=== PATIENT | female | born 1985 | race Caucasian/White ===

== ENCOUNTER 2018-09-17 22:00 | Inpatient (IN) | payer OTHER ==
[~2018-09-17 22:00] MED LIST: Bupivacaine 0.25% HCL 30 ML VIAL ONE
[2018-09-17] MEDS ORDERED: Promethazine HCl 25 MG/ML VIAL IM PRN (22:45)
[2018-09-17] MEDS ORDERED: NS / Oxytocin 40 units/1000ml 1,000 ML IV PRN (22:45)
[2018-09-17] MEDS ORDERED: Ibuprofen 800 MG TAB PO PRN (22:45)
[2018-09-17] MEDS ORDERED: Meperidine HCl/PF 25 MG/ML VIAL IM/IV PRN (22:45)
[2018-09-17] MEDS ORDERED: NS w/ Oxytocin 10 units 500 ML IV SCH ×2 (22:45)
[2018-09-17] MEDS ORDERED: Docusate 100 MG CAP PO PRN (22:45)
[2018-09-17] MEDS ORDERED: HYDROcodone/Acetaminophen 5/325 mg Tablet PO PRN ×2 (22:45)
[2018-09-17] MEDS ORDERED: Butorphanol Tartrate 1 MG/ML VIAL SLOW IVP PRN (22:45)
[2018-09-17] MEDS ORDERED: Ondansetron PF 4 MG/2 ML Vial IVP PRN (22:45)
[2018-09-17] MEDS ORDERED: Lidocaine 1% (PF) 30 ML VIAL SC PRN (22:45)
[2018-09-17] MEDS: Lactated Ringer's 1,000 ML IV SCH (22:57)
[2018-09-17 23:15] LABS: Hemoglobin 12.5 g/dL (12.0-16.0); Mean Corpuscular HGB CONC 34.6 g/dL (32.0-36.0); Mean Corpuscular Hemoglobin 31.7 pg (27.0-31.0); Mean Corpuscular Volume 91.6 fL (78.0-98.0); Mean Platelet Volume 6.8 fL (7.4-10.4); Platelet Count 225 thou/uL (130-400); RBC Distribution Width 11.1 % (11.5-14.5); Red Blood Cell (RBC) Count 3.94 mill/uL (4.20-5.40); White Blood Cell (WBC) Count 9.1 thou/uL (4.8-10.8)
--- NOTE | 2018-09-17 23:31 | PDOC.EVN ---
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 AROM performed after informed consent and AROM reviewed with her. CX 2cm pre-AROM/-, posterior.... AFTER arom, Ceph/Clear fluid. IUPC placed after reviewing it with her. FHTs reactive.
[2018-09-17 23:51] LABS: HBSAg Index 0.19 S/CO (0-0.99); Hep B Surf Ag Non-Reactive S/CO (NonReactive)
[2018-09-18 00:02] VITALS: BMI 25.0
[2018-09-18] MEDS ORDERED: Fentanyl 4 mcg/Bup 0.1% Cadd 0 ML ONE (00:28)
[2018-09-18] MEDS ORDERED: Fentanyl 4 mcg/Bup 0.1% Cadd 100 ML ONE ×2 (00:30→06:33)
[2018-09-18] MEDS: Lactated Ringer's 1,000 ML IV SCH ×2 (01:00→04:08)
[2018-09-18] MEDS ORDERED: diphenhydrAMINE 50 MG/ML VIAL IVP PRN (01:05)
[2018-09-18] MEDS ORDERED: Hydrocerin (Eucerin) Cream 120 gm Jar TOP PRN (01:05)
[2018-09-18] MEDS ORDERED: Promethazine HCl 25 MG/ML VIAL IM PRN (01:05)
[2018-09-18] MEDS ORDERED: Lactated Ringer's 500 ML IV PRN (01:05)
[2018-09-18] MEDS ORDERED: ePHEDrine/0.9% NaCl/PF SYRINGE 50 mg/10 ml SLOW IVP PRN (01:05)
[2018-09-18] MEDS ORDERED: Naloxone HCl 0.4 mg/ml Vial IVP PRN ×2 (01:05)
[2018-09-18] MEDS ORDERED: Acetaminophen 325 MG TAB PO PRN (01:05)
[2018-09-18] MEDS ORDERED: Ondansetron PF 4 MG/2 ML Vial IVP PRN ×2 (01:05→10:45)
[2018-09-18] MEDS ORDERED: Communication Order-Pharmacy FS SCH (01:15)
[2018-09-18] MEDS: Fentanyl 4 mcg/Bupivacaine 0.1% Cassette 100 ML EPIDURAL SCH ×2 (01:23→06:38)
--- NOTE | 2018-09-18 08:33 | PDOC.LDHP ---
Labor and Delivery H&P HPI: Pt is here for IOL for desires GUSTAVO @ 41 weeks with favorable cervix. Hx of CS for malpresentation, aware of risk and benefits of CS vs GUSTAVO. Current gestational age (weeks): 41 Due date: 09/11/18 Dating criteria: first trimester ultrasound Grav: 2 Para: 1 OB History Details: CS for malpresentation Current complications: none Abnormal US findings: No Past Medical History: none Current medications: pre- vitamins Previous surgical history: low tranverse CS, other (LEEP) Allergies/Adverse Reactions: Allergies Allergy/AdvReac Type Severity Reaction Status Date / Time No Known Allergies Allergy Verified 09/17/18 23:52 Social history: none - Physical Exam Vital signs reviewed and normal: yes General: NAD Heart: RRR Lungs: CTAB Abdomen: gravid Extremeties: no edema FHT: category 1 - Vaginal Exam cm dilated: 3 (on admission) Effacement: 50% Station: -1 - OB Labs Blood type: B RH: negative Antibody Screen: negative HIV: negative RPR: negative HEPSAg: negative 1 hour GCT: positive 3 hour GTT: negative GBS: negative Rubella: immune - Assessment L&D Assessment: medically indicated induction - Plan Plan: admit to L&D, GBS antibiotic prophylaxis, informed consent obtained, anesthesia consult for pain management -: A/P: 33yo @ 41 week here for IOL. AROM on admission and has progressed overnight to 10/100/+2, will start pushing, FHT reassuring.
[2018-09-18] MEDS ORDERED: Benzocaine/Menthol 20-0.5% 60 ML CAN TOP PRN (10:45)
[2018-09-18] MEDS ORDERED: Milk Of Magnesia 30 ML UDCUP PO PRN (10:45)
[2018-09-18] MEDS ORDERED: Adacel (T-DAP) 0.5 ML VIAL IM ONE (10:45)
[2018-09-18] MEDS ORDERED: NS / Oxytocin 40 units/1000ml 1,000 ML IV SCH (10:45)
[2018-09-18] MEDS ORDERED: Lanolin Ointment 7 GM TUBE TOP PRN (10:45)
[2018-09-18] MEDS ORDERED: HYDROcodone/Acetaminophen 5/325 mg Tablet PO PRN ×2 (10:45)
[2018-09-18] MEDS ORDERED: Bisacodyl 10 MG SUPP PR PRN (10:45)
[2018-09-18] MEDS: Ibuprofen 800 MG TAB PO SCH ×2 (13:53→21:17)
[2018-09-18] MEDS: Prenatal Vitamin 1 TAB PO SCH (15:12)
[2018-09-18] MEDS: Docusate Calcium (SURFAK) 240 MG CAP PO SCH ×2 (15:12→21:17)
[2018-09-18] MEDS: Ferrous Sulfate 325 MG TAB PO SCH (15:13)
[2018-09-19] MEDS: Ibuprofen 800 MG TAB PO SCH ×3 (06:15→21:48)
--- NOTE | 2018-09-19 08:02 | PDOC.PP ---
Post Progress Note Post Day #: 1 Subjective: breast feeding well, min lochia PO intake tolerated: yes Flatus: yes Ambulation: yes Vital Signs (12 hours) Temp Pulse Resp BP Pulse Ox 09/19/18 07:55 97.8 F 68 20 104/57 L 98 09/19/18 03:55 98.1 F 61 18 99/55 L 09/18/18 23:30 98.0 F 70 18 120/56 L 09/18/18 21:15 97 09/18/18 20:17 98.0 F 75 20 101/58 L 97 Weight Weight 160 lb - Physical Examination General: NAD Respiratory: non-labored breathing Skin: no rash Neurological: no gross focal deficits Psychiatric: normal affect Result Diagrams: 09/17/18 23:03 Additional Labs: Post Labs Blood Type B NEGATIVE 09/17/18 23:03 Hep Bs Antigen Non-Reactive S/CO (NonReactive) 09/17/18 23:03 (1) 41 weeks gestation of Code(s): Z3A.41 - 41 WEEKS GESTATION OF Status: Acute (2) Vaginal after delivery Code(s): O34.219 - MATERNAL CARE FOR UNSP TYPE SCAR FROM PREVIOUS DEL Status: Acute - Assessment/Plan PPD1 sp IOL and @ 41 weeks. Doing well, possible DC today if baby DC.
[2018-09-19] MEDS: Ferrous Sulfate 325 MG TAB PO SCH ×2 (08:03→16:26)
[2018-09-19] MEDS: Docusate Calcium (SURFAK) 240 MG CAP PO SCH ×2 (08:49→21:48)
[2018-09-19] MEDS: Prenatal Vitamin 1 TAB PO SCH (08:49)
[2018-09-19] MEDS ORDERED: Sodium Chloride 0.9% 0 ML ONE (21:49)
[2018-09-20] MEDS: Ibuprofen 800 MG TAB PO SCH ×2 (06:09→13:56)
[2018-09-20] MEDS: Ferrous Sulfate 325 MG TAB PO SCH ×2 (07:30→16:09)
[2018-09-20 08:00] VITALS: BP 113/66; TEMP 97.7
[2018-09-20] MEDS: Docusate Calcium (SURFAK) 240 MG CAP PO SCH (09:32)
[2018-09-20] MEDS: Prenatal Vitamin 1 TAB PO SCH (09:32)
--- NOTE | 2018-09-20 12:03 | PDOC.PP ---
Post Progress Note Post Day #: 2 Subjective: doing well, no concerns. PO intake tolerated: yes Flatus: yes Ambulation: yes Vital Signs (12 hours) Temp Pulse Resp BP Pulse Ox 09/20/18 08:00 97.7 F 70 20 113/66 97 09/20/18 07:45 97 Weight Weight 160 lb - Physical Examination General: NAD Respiratory: non-labored breathing Skin: no rash Psychiatric: normal affect Result Diagrams: 09/17/18 23:03 Additional Labs: Post Labs Blood Type B NEGATIVE 09/17/18 23:03 Hep Bs Antigen Non-Reactive S/CO (NonReactive) 09/17/18 23:03 (1) 41 weeks gestation of Code(s): Z3A.41 - 41 WEEKS GESTATION OF Status: Acute (2) Vaginal after delivery Code(s): O34.219 - MATERNAL CARE FOR UNSP TYPE SCAR FROM PREVIOUS DEL Status: Acute - Assessment/Plan PPD2 doing well, plan for DC today.
== END 2018-09-20 18:55 | disposition home or self-care (01) | DRG 807 ==
LOC: L&D 22:07 → 3SW 09-18 12:45
PROVIDERS: ADMIT Obstetrics & Gynecology; ATTEND Obstetrics & Gynecology
PROC: 3E0P7VZ Introduction of Hormone into Female Reproductive, Via Natural or Artificial Opening (ICD-10-PCS; 2018-09-17)
PROC: 10H07YZ Insertion of Other Device into Products of Conception, Via Natural or Artificial Opening (ICD-10-PCS; 2018-09-17)
PROC: 4A1H7CZ Monitoring of Products of Conception, Cardiac Rate, Via Natural or Artificial Opening (ICD-10-PCS; 2018-09-17)
PROC: 10E0XZZ Delivery of Products of Conception, External Approach (ICD-10-PCS; principal; 2018-09-18)
PROC: 0KQM0ZZ Repair Perineum Muscle, Open Approach (ICD-10-PCS; 2018-09-18)
PROC: 10907ZC Drainage of Amniotic Fluid, Therapeutic from Products of Conception, Via Natural or Artificial Opening (ICD-10-PCS; 2018-09-18)
DX: O48.0 Post-term pregnancy (principal); Z37.0 Single live birth; O34.211 Maternal care for low transverse scar from previous cesarean delivery; Z3A.41 41 weeks gestation of pregnancy; O99.824 Streptococcus B carrier state complicating childbirth; O70.1 Second degree perineal laceration during delivery
CPT/HCPCS: 36415; 51702; 85027; 85461; 86850; 86900; 86901; 87340; 90384; 90715; 96372; J2001; J2405; S0020

== ENCOUNTER 2021-11-05 15:43 | Outpatient (CLI) | payer BC | END 2021-11-05 15:44 | disposition home or self-care (01) | LOC: CTENTCT 15:43 | PROVIDERS: ATTEND Specialist | DX: J32.8 Other chronic sinusitis (principal) | CPT/HCPCS: 70486 ==